=== PATIENT | female | born 1990 ===

== ENCOUNTER 2023-05-06 10:48 | Inpatient (IN) | payer OTHER ==
[~2023-05-06] VITALS: Ht 152.4 cm; Wt 65.8 kg
[2023-05-10] MEDS ORDERED: FLUCONAZOLE150 MG (08:10)
[2023-05-12] MEDS ORDERED: GABAPENTIN300 MG PO (06:46)
[2023-05-12] MEDS ORDERED: IBUPROFEN800 MG PO (06:46)
[2023-05-12] MEDS ORDERED: SIMETHICONE125 M1 PO (06:47)
[2023-05-12] MEDS ORDERED: POLY119PG PO (06:47)
== END 2023-05-12 09:40 | disposition home or self-care (01) | DRG 743 ==
LOC: O/R 05-10 04:38 → OB/GYN 05-10 04:38
PROVIDERS: ADMIT Obstetrics & Gynecology; ATTEND Obstetrics & Gynecology
PROC: 0TNB0ZZ Release Bladder, Open Approach (ICD-10-PCS; 2023-05-10)
PROC: 0DNU0ZZ Release Omentum, Open Approach (ICD-10-PCS; 2023-05-10)
PROC: 0UT90ZZ Resection of Uterus, Open Approach (ICD-10-PCS; principal; 2023-05-10 07:15)
DX: N80.03 Adenomyosis of the uterus (principal); Z20.822 Contact with and (suspected) exposure to COVID-19; N72 Inflammatory disease of cervix uteri